=== PATIENT | female | born 2000 | race Caucasian/White ===

== ENCOUNTER 2018-10-24 13:46 | Observation (INO) | payer MEDICAID ==
[~2018-10-24] VITALS: Ht 154.9 cm; Wt 70.8 kg
[2018-10-24 15:07] LABS: BASOPHILS % 0.5 % (0.0-2.0); EOSINOPHILS % 0.2 % (0.0-5.0); HEMATOCRIT. 34.8 % (36.0-48.0); HEMOGLOBIN. 11.7 g/dL (12.0-16.0); LYMPHOCYTES % 17.5 % (20.0-50.0); MEAN CORPUSCULAR HEMOGLOBIN 29.6 pg (28.0-32.0); MEAN CORPUSCULAR VOLUME 87.8 fL (81.0-99.0); MEAN PLATELET VOLUME 7.9 fl (7.4-10.4); MONOCYTES % 5.6 % (2.0-8.0); NEUTROPHILS % 76.2 % (40.0-76.0); PLATELET 331 x1000/uL (130-400); RED BLOOD CELL COUNT 3.96 mill/uL (4.2-5.4); RED CELL DISTRIBUTION WIDTH 14.9 % (11.6-14.6)
[2018-10-24] MEDS ORDERED: CALC-1042 MT (15:27)
[2018-10-24] MEDS ORDERED: PREN1TAB78 MT (15:27)
== END 2018-10-24 15:40 | disposition home or self-care (01) ==
LOC: EDSTATUS 13:53 → INTOOBSV 13:56 → 8 EST LDRP 13:56
PROVIDERS: ADMIT Obstetrics & Gynecology; ATTEND Obstetrics & Gynecology
DX: O26.893 Other specified pregnancy related conditions, third trimester (principal); R55 Syncope and collapse; R53.1 Weakness; R42 Dizziness and giddiness; Z3A.30 30 weeks gestation of pregnancy
CPT/HCPCS: 36415; 80051; 82947; 85025; 99281; G0378; 99285

== ENCOUNTER 2018-12-20 21:06 | Observation (INO) | payer MEDICAID ==
[~2018-12-20] VITALS: Ht 152.4 cm; Wt 69.4 kg
[~2018-12-20 21:06] MED LIST: CALC-1042 MT; PREN1TAB78 MT
[2018-12-20] MEDS ORDERED: ONDANSETRON HCL 4MG/2ML INJ IV PRN (22:15)
[2018-12-20] MEDS: LACTATED RINGERS 1,000 ML IV SCH ×2 (22:25→22:53)
[2018-12-20 22:58] LABS: CLARITY URINE CLEAR (CLEAR); COLOR URINE YELLOW (YELLOW); KETONES URINE 2+ (NEGATIVE); LEUKOCYTE ESTERASE URINE NEGATIVE (NEGATIVE); NITRITE URINE NEGATIVE (NEGATIVE); OCCULT BLOOD URINE NEGATIVE (NEGATIVE); PH URINE 7.5 (4.5-8.0); PROTEIN URINE NEGATIVE (NEGATIVE); SPECIFIC GRAVITY URINE 1.023 (1.005-1.030)
[2018-12-20 23:03] LABS: CHLORIDE 106 mEq/L (98-107)
[2018-12-20 23:05] LABS: BASOPHILS % 0.2 % (0.0-2.0); EOSINOPHILS % 0.2 % (0.0-5.0); HEMATOCRIT. 36.1 % (36.0-48.0); HEMOGLOBIN. 12.4 g/dL (12.0-16.0); LYMPHOCYTES % 13.3 % (20.0-50.0); MEAN CORPUSCULAR HEMOGLOBIN 30.2 pg (28.0-32.0); MEAN PLATELET VOLUME 8.4 fl (7.4-10.4); MONOCYTES % 5.7 % (2.0-8.0); NEUTROPHILS % 80.6 % (40.0-76.0); PLATELET 318 x1000/uL (130-400); RED CELL DISTRIBUTION WIDTH 15.4 % (11.6-14.6)
[2018-12-20] MEDS ORDERED: ACETAMINOPHEN 500MG TABLET PO NR (23:45)
[2018-12-20] MEDS ORDERED: FERR-71 PO (23:46)
== END 2018-12-21 00:35 | disposition home or self-care (01) ==
LOC: 8 EST LDRP 21:06
PROVIDERS: ADMIT Obstetrics & Gynecology; ATTEND Obstetrics & Gynecology
DX: O26.893 Other specified pregnancy related conditions, third trimester (principal); R10.30 Lower abdominal pain, unspecified; M54.5 Low back pain; R10.13 Epigastric pain; O21.2 Late vomiting of pregnancy; Z3A.37 37 weeks gestation of pregnancy
CPT/HCPCS: 36415; 80053; 81003; 85025; 96374; 99281; G0378; J2405; 96360; 96361; 96365

== ENCOUNTER 2019-01-04 20:26 | Observation (INO) | payer MEDICAID ==
[~2019-01-04] VITALS: Ht 152.4 cm; Wt 69.4 kg
[~2019-01-04 20:26] MED LIST changes: -CALC-1042 MT; +FERR-71 PO
== END 2019-01-04 22:50 | disposition home or self-care (01) ==
LOC: 8 EST LDRP 20:26
PROVIDERS: ADMIT Obstetrics & Gynecology; ATTEND Obstetrics & Gynecology
DX: O62.9 Abnormality of forces of labor, unspecified (principal); O26.893 Other specified pregnancy related conditions, third trimester; R10.9 Unspecified abdominal pain; M54.9 Dorsalgia, unspecified; Z3A.39 39 weeks gestation of pregnancy
CPT/HCPCS: 99281; G0378

== ENCOUNTER 2019-01-14 20:51 | Inpatient (IN) | payer MEDICAID ==
[~2019-01-14] VITALS: Ht 152.4 cm; Wt 69.4 kg
[2019-01-15] MEDS ORDERED: METHYLERGONOVINE MALEATE 0.2 MG/ML IM PRN (12:00)
[2019-01-15] MEDS ORDERED: CARBOPROST TROMETHAMINE 250 MCG/ML AMPUL IM PRN (12:00)
[2019-01-15] MEDS ORDERED: NALOXONE HCL 0.4 MG/ML 1ML VIAL IM PRN (12:00)
[2019-01-15] MEDS ORDERED: LACTATED RINGERS 1,000 ML IV SCH (12:00)
[2019-01-15] MEDS ORDERED: FENTANYL CITRATE/PF 50MCG/ML 2ML VIAL ONE (12:18)
[2019-01-15] MEDS ORDERED: MORPHINE SULFATE/PF 1MG/ML 10ML AMP ONE (12:18)
[2019-01-15] MEDS ORDERED: PHENYLEPHRINE HCL 10 MG/ML 1ML (IV VIAL) IV ONE (12:20)
[2019-01-15] MEDS ORDERED: BUPIVACAINE HCL/DEXTROSE/PF 0.75% 2ML AMP INJ ONE (12:20)
[2019-01-15] MEDS ORDERED: EPHEDRINE SULFATE 50MG/ML VIAL ONE ×2 (12:21→14:05)
[2019-01-15] MEDS ORDERED: ONDANSETRON HCL 4MG/2ML INJ ONE (12:27)
[2019-01-15] MEDS ORDERED: CEFAZOLIN SODIUM 1000MG/VIAL ONE (12:27)
[2019-01-15] MEDS ORDERED: SODIUM CHLORIDE 0.9% 10ML VIAL ONE ×2 (12:28→14:05)
[2019-01-15 12:37] LABS: BASOPHILS % 0.3 % (0.0-2.0); EOSINOPHILS % 0.3 % (0.0-5.0); HEMATOCRIT. 36.9 % (36.0-48.0); HEMOGLOBIN. 12.5 g/dL (12.0-16.0); LYMPHOCYTES % 16.4 % (20.0-50.0); MEAN CORPUSCULAR HEMOGLOBIN 29.5 pg (28.0-32.0); MEAN PLATELET VOLUME 8.2 fl (7.4-10.4); MONOCYTES % 5.3 % (2.0-8.0); NEUTROPHILS % 77.7 % (40.0-76.0); PLATELET 287 x1000/uL (130-400); RED BLOOD CELL COUNT 4.24 mill/uL (4.2-5.4); RED CELL DISTRIBUTION WIDTH 15.1 % (11.6-14.6)
[2019-01-15 12:51] LABS: INR 0.9; PARTIAL THROMBOPLASTIN TIME 29.3 sec (23.4-31.0); PROTHROMBIN TIME 9.6 sec (9.6-11.0)
[2019-01-15 13:32] LABS: HEPATITIS B SURFACE ANTIGEN NEGATIVE
[2019-01-15] MEDS ORDERED: SUCCINYLCHOLINE CHLORIDE 200MG/10ML IV ONE (14:04)
[2019-01-15] MEDS ORDERED: ETOMIDATE 2MG/ML 10ML VIAL IV ONE (14:04)
[2019-01-15] MEDS ORDERED: SODIUM CHLORIDE 0.9% 1,000 ML IV ONE (14:51)
[2019-01-15] MEDS: DEXT 5%/LR + PITOCIN 20UNITS/L 1,000 ML IV SCH ×2 (14:52→21:38)
[2019-01-15] MEDS ORDERED: MEPERIDINE HCL/PF 25MG/ML CPJ IV PRN ×2 (15:00→16:30)
[2019-01-15] MEDS ORDERED: MORPHINE SULFATE 2 MG/ML CPJ (NOT FOR IM USE) IV PRN (15:00)
[2019-01-15] MEDS ORDERED: ONDANSETRON HCL 4MG/2ML INJ IV PRN ×2 (15:00→16:30)
[2019-01-15] MEDS ORDERED: HYDROMORPHONE HCL/PF 2MG/ML CPJ IV PRN ×2 (15:00→16:30)
[2019-01-15] MEDS ORDERED: LABETALOL 5MG/ML SYR 20 MG/4 ML SYRINGE IV PRN (16:30)
[2019-01-15] MEDS ORDERED: ROPIVACAINE HCL/PF EPIDURAL 200 ML EPI SCH (16:45)
[2019-01-15] MEDS ORDERED: DIPHENHYDRAMINE 50MG/ML VIAL IV PRN (16:45)
[2019-01-15 17:00] VITALS: BP 107/61
[2019-01-15 17:30] VITALS: BP 121/61
[2019-01-15] MEDS ORDERED: CITRIC ACID/SODIUM CITRATE SOLN 30ML UDC PO NR (17:30)
[2019-01-15 18:56] LABS: CLARITY URINE CLEAR (CLEAR); COLOR URINE YELLOW (YELLOW); KETONES URINE TRACE (NEGATIVE); LEUKOCYTE ESTERASE URINE NEGATIVE (NEGATIVE); NITRITE URINE NEGATIVE (NEGATIVE); OCCULT BLOOD URINE NEGATIVE (NEGATIVE); PROTEIN URINE NEGATIVE (NEGATIVE); SPECIFIC GRAVITY URINE 1.005 (1.005-1.030); UROBILINOGEN URINE 0.2 E.U./dL (0.2-1.0)
[2019-01-15 19:08] LABS: *AMPHETAMINES SCREEN URINE NEGATIVE (NEGATIVE); *BARBITURATES SCREEN URINE NEGATIVE (NEGATIVE); *COCAINE SCREEN URINE NEGATIVE (NEGATIVE); METHADONE URINE SCREEN NEGATIVE (NEGATIVE); OPIATES URINE SCREEN NEGATIVE (NEGATIVE)
[2019-01-15 19:09] LABS: CANNABINOID URINE SCREEN NEGATIVE (NEGATIVE); PHENCYCLIDINE URINE SCREEN NEGATIVE (NEGATIVE)
[2019-01-15 19:18] LABS: *BENZODIAZEPINES SCREEN URINE NEGATIVE (NEGATIVE)
[2019-01-15 21:05] VITALS: BP 113/69
[2019-01-15] MEDS ORDERED: KETOROLAC 30MG/ML VIAL IV PRN (23:30)
[2019-01-16 04:00] VITALS: BP 96/59
[2019-01-16 07:23] LABS: BASOPHILS % 0.2 % (0.0-2.0); EOSINOPHILS % 0.2 % (0.0-5.0); HEMATOCRIT. 30.1 % (36.0-48.0); HEMOGLOBIN. 10.3 g/dL (12.0-16.0); LYMPHOCYTES % 13.3 % (20.0-50.0); MEAN CORPUSCULAR VOLUME 87.3 fL (81.0-99.0); MEAN PLATELET VOLUME 8.3 fl (7.4-10.4); MONOCYTES % 7.6 % (2.0-8.0); NEUTROPHILS % 78.7 % (40.0-76.0); PLATELET 258 x1000/uL (130-400); RED BLOOD CELL COUNT 3.45 mill/uL (4.2-5.4); RED CELL DISTRIBUTION WIDTH 15.2 % (11.6-14.6)
[2019-01-16 08:00] VITALS: BP 110/65
[2019-01-16] MEDS ORDERED: HYDROCODONE/ACETAMINOPHEN 5/325MG TABLET PO PRN (11:45)
[2019-01-16] MEDS: IBUPROFEN 800MG TABLET PO PRN (12:23)
[2019-01-16 16:38] VITALS: BP 102/61
[2019-01-16] MEDS: HYDROCODONE/ACETAMINOPHEN 5/325MG TABLET PO PRN (18:45)
[2019-01-16 22:00] VITALS: BP 106/61
[2019-01-17] MEDS: IBUPROFEN 800MG TABLET PO PRN ×3 (02:09→19:48)
[2019-01-17] MEDS ORDERED: BISACODYL 10MG SUPP PR PRN (02:45)
[2019-01-17 04:40] VITALS: BP 107/59
[2019-01-17] MEDS ORDERED: LANOLIN OINT 0.25 GM TUBE TOP PRN (05:30)
[2019-01-17 08:00] VITALS: BP 104/54
[2019-01-17] MEDS ORDERED: DOCUSATE SODIUM 100MG CAPSULE PO SCH (09:00)
[2019-01-17] MEDS: SIMETHICONE 80MG TABLET CHEW PO SCH ×3 (09:05→14:59)
[2019-01-17 16:20] VITALS: BP 104/66
[2019-01-17 20:00] VITALS: BP 105/63
[2019-01-18] VITALS: BP 108/60
[2019-01-18] MEDS: IBUPROFEN 800MG TABLET PO PRN ×2 (03:40→12:48)
[2019-01-18 04:00] VITALS: BP 99/57
[2019-01-18 07:39] VITALS: BP 110/65
[2019-01-18] MEDS: SIMETHICONE 80MG TABLET CHEW PO SCH (08:10)
[2019-01-18] MEDS: HYDROCODONE/ACETAMINOPHEN 5/325MG TABLET PO PRN (08:11)
[2019-01-18] MEDS ORDERED: TETANUS, DIPHTHERIA, PERTUSSIS VAC/PF 0.5ML (>7YR OLD) IM ONE (10:00)
== END 2019-01-18 13:20 | disposition home or self-care (01) | DRG 540 ==
LOC: OBSVTOIN 20:51 → 8 EST LDRP 20:51 → 8EST 01-15 17:00
PROVIDERS: ADMIT Specialist; ATTEND Specialist
PROC: 10D00Z1 Extraction of Products of Conception, Low, Open Approach (ICD-10-PCS; principal; 2019-01-15)
DX: O32.2XX0 Maternal care for transverse and oblique lie, not applicable or unspecified (principal); D62 Acute posthemorrhagic anemia; O90.81 Anemia of the puerperium; O48.0 Post-term pregnancy; Z37.0 Single live birth; Z3A.40 40 weeks gestation of pregnancy
CPT/HCPCS: 36415; 76815; 76818; 80305; 86592; 86703; 86762; 86850; 86900; 86920; 87340; 88307; 90715; 99281; J0330; J0690; J1200; J1885; J2274; J2370; J2405; J2590; J3010; J3490; J7120; A4315

== ENCOUNTER 2022-05-11 14:31 | Emergency (ER) | payer MEDICAID ==
[~2022-05-11] VITALS: Ht 152.4 cm; Wt 68.0 kg
[2022-05-11] MEDS ORDERED: ACETAMINOPHEN 325MG TABLET PO STA (19:07)
[2022-05-11 19:49] LABS: BASOPHILS % 0.4 % (0.0-2.0); EOSINOPHILS % 1.7 % (0.0-5.0); HEMATOCRIT. 37.6 % (36.0-48.0); HEMOGLOBIN. 12.6 g/dL (12.0-16.0); LYMPHOCYTES % 34.3 % (20.0-50.0); MEAN CORPUSCULAR HEMOGLOBIN 29.6 pg (28.0-32.0); MEAN CORPUSCULAR VOLUME 88.3 fL (81.0-99.0); MEAN PLATELET VOLUME 8.3 fl (7.4-10.4); MONOCYTES % 7.8 % (2.0-8.0); NEUTROPHILS % 55.8 % (40.0-76.0); PLATELET 333 x1000/uL (130-400); RED BLOOD CELL COUNT 4.26 mill/uL (4.2-5.4)
[2022-05-11 20:03] LABS: CHLORIDE 104 mEq/L (98-107)
[2022-05-11 20:22] LABS: CLARITY URINE CLEAR (CLEAR); COLOR URINE YELLOW (YELLOW); KETONES URINE NEGATIVE (NEGATIVE); LEUKOCYTE ESTERASE URINE NEGATIVE (NEGATIVE); NITRITE URINE NEGATIVE (NEGATIVE); OCCULT BLOOD URINE 2+ (NEGATIVE); PH URINE 6.5 (4.5-8.0); PROTEIN URINE NEGATIVE (NEGATIVE); SPECIFIC GRAVITY URINE 1.006 (1.005-1.030); UROBILINOGEN URINE 0.2 E.U./dL (0.2-1.0)
[2022-05-11] MEDS ORDERED: ACETAMINOPHEN 325MG TABLET PO NR (21:00)
[2022-05-11] MEDS ORDERED: KETOROLAC 60MG/2ML VIAL IM ONE (23:00)
[2022-05-12 00:19] VITALS: BP 121/79
== END 2022-05-12 00:22 | disposition home or self-care (01) ==
LOC: ER 14:31
DX: N93.8 Other specified abnormal uterine and vaginal bleeding (principal); R51.9 Headache, unspecified; Z97.5 Presence of (intrauterine) contraceptive device; Z90.49 Acquired absence of other specified parts of digestive tract
CPT/HCPCS: 36415; 70450; 76830; 76856; 80053; 81003; 81025; 85025; 86850; 86900; 86901; 96372; 99284; J1885